=== PATIENT | male | born 1970 | race Caucasian/White ===

== ENCOUNTER → 2022-03-02 | Outpatient (CLI) | payer OTHER ==
[~2022-03-02] MED LIST: ATENOLOL25 MG PO; BIAXIN500 MG PO; CHANTIX1 MG PO; CIALIS5 MG PO; CLARITIN10 MG PO; HYDROCODONE BIT1 T11 PO; MEDROL DOSEPAK4 MG PO; METFOMIN HYDRO850 MG PO; METFORMIN500 MG PO; PHENERGAN W/ DE30 ML PO; PREDNICOT10 MG PO; TESSALON PERLE100 M1 PO; VIBRAMYCIN100 MG PO
== END | disposition home or self-care (01) ==
LOC: LAB 16:25
PROVIDERS: ATTEND Internal Medicine
DX: Z83.2 Family history of diseases of the blood and blood-forming organs and certain disorders involving the immune mechanism (principal)

== ENCOUNTER 2022-06-15 16:29 | Emergency (ER) | payer OTHER ==
[~2022-06-15] VITALS: Wt 83.9 kg
== END 2022-06-15 17:38 | disposition left against medical advice (07) ==
LOC: ED 16:29
DX: R05.9 Cough, unspecified (principal); M79.10 Myalgia, unspecified site; Z53.21 Procedure and treatment not carried out due to patient leaving prior to being seen by health care provider

== ENCOUNTER 2025-04-14 09:26 | Emergency (ER) | payer OTHER ==
[~2025-04-14] VITALS: Ht 177.8 cm; Wt 79.4 kg
[2025-04-14] MEDS ORDERED: Dexamethasone Sodium Phospha 20 MG/5 ML VIAL IM ONE (09:55)
[2025-04-14] MEDS ORDERED: Albuterol Sulf/Ipratropium 3 ML VIAL NEB ONE (09:55)
[2025-04-14] MEDS ORDERED: PREDNISONE20 M1 PO (11:21)
[2025-04-14] MEDS ORDERED: HYCODAN 5 MG-1473 ML PO (11:21)
== END 2025-04-14 11:26 | disposition home or self-care (01) ==
LOC: ED 09:26
DX: J20.9 Acute bronchitis, unspecified (principal); F17.200 Nicotine dependence, unspecified, uncomplicated; Z79.899 Other long term (current) drug therapy; Z98.890 Other specified postprocedural states; Z20.822 Contact with and (suspected) exposure to COVID-19